=== PATIENT | female | born 1965 | race Caucasian/White ===

== ENCOUNTER 2016-09-22 17:34 | Emergency (ER) | payer BC ==
--- NOTE | 2016-11-02 12:37 | ER ---
ADMIT: 09/22/2016 RM/LOC: ER [facility] MR#: [id number] [address] [id number] ROLDAN MONTAGUE Juliette [address] [place], [place] [id number] Emergency Room Report SEX: F AGE: 51 : 1965 CORRECTION: 10/25/2016 1507 VDG DATE: 09/22/2016 CHIEF COMPLAINT: Hypertension and dizziness. HISTORY OF PRESENT ILLNESS: This is a pleasant 51-year-old white female presenting to the ER with elevated blood pressure and dizziness. The patient states she was being seen at the [facility] today, and when they took her blood pressure, initial reading were 240/108. She was given 0.1 mg of clonidine, and her repeat blood pressure was even higher. At this time, MARIO Castrejon, GI Clinic told it was necessary she present to the ER for further evaluation and management. Upon checking in her blood pressure was 215/98. She complains of feeling dizzy and some blurry vision. The patient states she felt this way over the last 10 to 14 days and notes specific episodes of dizziness when she bends over and makes quick movements. 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 She states she is not sleeping well and has generally not been good care of herself over the last several weeks. She admits to generalized sensation of spinning. She denies any headache at this time, but states she has had off and on headache over the last week or so. She states she does have some difficulty with ambulation feeling like she is off balance. She has no real pertinent past medical history. She takes Aleve as needed as well as calcium and vitamin D. COURSE IN THE EMERGENCY ROOM: The patient was seen and evaluated and discussed with Dr. Miller. Given her history of high blood pressure dating back even past several years without treatment, we thought it was necessary at this time to run some basic labs to check a kidney function. We will also proceed with a CT of her head to rule out any hypertensive processes. Lab came back within normal limits, and CT was unremarkable. The patient was given 5 mg of lisinopril prior to discharge and provided with a script for lisinopril 5 mg 1 tablet p.o. daily. She was instructed to follow up with Rowan Woods in [facility] early next week. She was also encouraged to begin taking b.i.d. blood pressure readings at home as her sister has a cuff that she is able to use. She was instructed to return with any worsening signs or symptoms. Activity as tolerated. Questions were sought and answered to the best of our ability. The patient agreed to the plan moving forward. She was discharged in stable condition. MARIO Ramon / Ronen Miller MD / modl JOB #: [id number] CC: Ronen Miller MD, Attending Physician Rowan Woods, Family Physician ADMIT: 09/22/2016 RM/LOC: [facility] MR#: [id number] [address] [place] [id number] ROLDAN MONTAGUE [address] [place] [address] Emergency Room Report SEX: F AGE: 51 : 1965 CORRECTION: 10/25/2016 1507 RASHEED
== END 2016-09-22 21:11 | disposition home or self-care (01) ==
LOC: ER 17:34
DX: I10 Essential (primary) hypertension (principal); R42 Dizziness and giddiness; Z98.890 Other specified postprocedural states; Z79.899 Other long term (current) drug therapy

== ENCOUNTER → 2016-10-18 | Outpatient (CLI) | payer BC, OTHER | END | disposition home or self-care (01) | DX: R94.6 Abnormal results of thyroid function studies (principal); Z80.8 Family history of malignant neoplasm of other organs or systems ==